=== PATIENT | female | born 1985 | race Caucasian/White ===

== ENCOUNTER → 2018-02-26 | Outpatient (CLI) | payer OTHER ==
--- NOTE | 2018-02-26 15:12 | RADIOLOGY REPORT (SQ) ---
EXAM DESCRIPTION: KUB COMPLETED DATE/TIME: 02/26/2018 1:33 pm REASON FOR STUDY: RENAL CALCULUS, LEFT N20.0 CALCULUS OF KIDNEY COMPARISON: None. NUMBER OF VIEWS: One view. TECHNIQUE: Supine radiographic image of the abdomen acquired. LIMITATIONS: None. FINDINGS: BOWEL GAS PATTERN: Normal bowel gas pattern. No dilated loops. CALCIFICATIONS: 4 mm calculus overlies left kidney. SOFT TISSUES: No gross mass or suggestion of organomegaly. HARDWARE: None in the abdomen. BONES: No acute fracture. No worrisome bone lesions. OTHER: No other significant finding. IMPRESSION: Left nephrolithiasis. TECHNICAL DOCUMENTATION: JOB ID: [id number] [employer]- All Rights Reserved Reading location - IP/workstation name: [email or web address]
== END ==
LOC: OD 13:13
PROVIDERS: ATTEND Urology
DX: N20.0 Calculus of kidney (principal)
CPT/HCPCS: 74018

== ENCOUNTER 2018-02-28 11:08 | Day surgery (SDC) | payer OTHER ==
[2018-02-27 13:58] LABS: HEMATOCRIT 29.1 % (36.0-47.0); HEMOGLOBIN 9.2 g/dL (12.0-15.5); MEAN CORPUSCULAR HEMOGLOBIN 20.3 pg (27.0-33.4); MEAN CORPUSCULAR HGB CONC 31.5 g/dL (32.0-36.0); PLATELET COUNT 347 10^3/uL (150-450); RED BLOOD COUNT 4.52 10^6/uL (3.72-5.28); RED CELL DISTRIBUTION WIDTH 19.1 % (11.5-14.0); WHITE BLOOD COUNT 6.1 10^3/uL (4.0-10.5)
[2018-02-27 13:58] LABS: APPEARANCE,URINE SLIGHTLY-CLOUDY; BILIRUBIN,URINE NEGATIVE (NEGATIVE); COLOR,URINE YELLOW; GLUCOSE, URINE NEGATIVE (NEGATIVE); KETONES,URINE 20 mg/dL (NEGATIVE); LEUKOCYTE ESTERASE,URINE MODERATE (NEGATIVE); NITRITE,URINE NEGATIVE (NEGATIVE); PROTEIN,URINE NEGATIVE (NEGATIVE); URINE SPECIFIC GRAVITY 1.026; UROBILINOGEN,URINE NEGATIVE mg/dL (<2.0)
[2018-02-27 14:00] LABS: INTERNATIONAL RATION (INR) 0.94; MEAN CORPUSCULAR VOLUME 64 fl (80-97); PROTHROMBIN TIME 13.1 SEC (11.4-15.4)
[2018-02-27 14:01] LABS: PARTIAL THROMBOPLASTIN TIME 29.4 SEC (23.5-35.8)
[~2018-02-28 11:08] MED LIST: CEFAZOLIN 1 GM/D5W RTU 1 GM/50 ML RTUPB IV PRN
[2018-02-28] MEDS ORDERED: FENTANYL CITRATE INJ/PF 100 MCG/2 ML AMPUL ONE ×3 (11:44→12:02)
[2018-02-28] MEDS ORDERED: MIDAZOLAM 2 MG/2 ML INJ ONE ×2 (11:44)
[2018-02-28] MEDS ORDERED: PROMETHAZINE HCL INJ 25 MG/1 ML VIAL ONE (11:57)
[2018-02-28 13:16] LABS: PATH REVIEW PATHOLOGIST REVIEWED
--- NOTE | 2018-03-02 08:29 | Operative Report ---
Operative Report DATE OF SURGERY: 03/28/18 PREOPERATIVE DIAGNOSIS: Left renal stone POSTOPERATIVE DIAGNOSIS: same OPERATION: Left ESWL SURGEON: APOLLO RIZZO II ANESTHESIA: Moderate Sedation INTRAOPERATIVE FINDINGS: left renal stone PROCEDURE: Diagnosis: Left renal stone Postoperative diagnosis: Same Procedure: Left ESWL Anesthesia: IV sedation Surgeon: Teofilo The patient was taken to the lithotripter truck and placed on the gantry. Her stone was localized. After adequate IV sedation, she underwent 4000 shocks to maximum level 4. The stone was monitored during the procedure and the power gradually increased. There was stone material present and visible at the termination of the procedure on fluoroscopy however it appeared to be fragmented. She tolerated the procedure well. She was returned to PACU in satisfactory condition.
== END 2018-02-28 16:00 | disposition home or self-care (01) ==
LOC: SC 11:08
PROVIDERS: ATTEND Urology
DX: N20.0 Calculus of kidney (principal); I10 Essential (primary) hypertension; E07.9 Disorder of thyroid, unspecified; Z79.899 Other long term (current) drug therapy
CPT/HCPCS: 36415; 85027; 85610; 85730; 81001; 50590; J2250; J0690; J3010; J2550